=== PATIENT | male | born 2000 | race Caucasian/White ===

== ENCOUNTER 2023-11-28 21:50 | Emergency (ER) | payer OTHER, SELFPAY ==
[2023-11-28 21:57] VITALS: BP 154/98; PULSE 73; RESP 16; TEMP 36.9; O2SAT 100
--- NOTE | 2023-11-28 22:11 | ED_ITS ---
HPI - General Adult General Chief complaint: Ear Stated complaint: sick, ear pain kind of muffled Time Seen by Provider: 11/28/23 21:56 Source: patient Mode of arrival: Ambulatory History of Present Illness HPI narrative: 23-year-old male who is here for evaluation of progressively worsening right- sided Ear pain and muffled hearing on the right side. no drainage from the ear. Does have some sinus congestion a slight sore throat but that is only developed over the past couple days. Has not tried anything for symptoms prior to arrival. Related Data Previous Rx's Medication Instructions Recorded amoxicillin 875 mg-potassium 1 tab PO BID 7 days #14 tabs 11/28/23 clavulanate 125 mg tablet Allergies Allergy/AdvReac Type Severity Reaction Status Date / Time No Known Allergies Allergy Uncoded 11/28/23 21:56 Review of Systems Constitutional Constitutional: Reports system reviewed and no additional complaints, except as documented ENT Ears, Nose, Mouth, and Throat: Reports system reviewed and no additional complaints, except as documented Integumentary/Breasts Skin/Breast: Reports system reviewed and no additional complaints, except as do cumented Patient History Social History Smoking Status: Never smoker Smoking Status: Never smoker alcohol intake frequency: a few times a week Substance Use Type: marijuana Exam Initial Vital Signs Initial Vital Signs: Vital Signs Temperature 98.4 F 11/28/23 21:57 Pulse Rate 73 11/28/23 21:57 Respiratory Rate 16 11/28/23 21:57 Blood Pressure 154/98 H 11/28/23 21:57 Pulse Oximetry 100 11/28/23 21:57 Oxygen Delivery Method Room Air 11/28/23 21:57 HENMT Ears: TM normal on the left, EAC's normal, mastoids normal on the right and TM abnormal bulging on the right, wth effusion serous on the right, erythematous on the right, with fluid behind the TM on the right and with loss of landmarks on the right Mouth: oral mucosae normal, oropharynx normal and moist mucous membranes Throat: posterior oropharynx normal Skin General: no rashes or lesions noted Course Orders Ordered: Discontinued Medications Amoxicillin/Clavulanate Potassium (Amoxicillin/Clav 875/125 Mg) 1 tab PO NOW ONE Stop: 11/28/23 22:12 Last Admin: 11/28/23 22:14 Dose: 1 tab Documented By: AB Vital Signs Vital signs: Vital Signs - 8 hr 11/28/23 21:57 Temperature 98.4 F Pulse Rate 73 Respiratory Rate 16 Blood Pressure 154/98 H Pulse Oximetry 100 Oxygen Delivery Method Room Air Medical Decision Making MDM Narrative Medical decision making narrative: Physical exam is consistent with an acute otitis media on the right. His physical exam is not consistent with otitis externa. No mastoid tenderness. Oropharynx is unremarkable. He was had progressively worsening symptoms over the past couple days. Plan will be to start him on antibiotics. First dose given here in the emergency department a prescription was sent to the pharmacy of his choice. We also discussed the use of antihistamines which she can purchase [id number]. He was given return precautions. He expressed understanding and agreement. Discharge Plan Departure Patient Disposition: Home Clinical Impression: Otitis media Instructions: Middle Ear Infection Activity Restrictions/Additional Instructions: Take the antibiotic as directed. It was transmitted to [facility] per your request. I also recommend a antihistamine such as Claritin or Zyrtec. You can purchase this [id number]. Generic versions of the his medications are appropriate. Return to the emergency department for new symptoms. Prescriptions: New amoxicillin-pot clavulanate 875-125 mg tablet 1 tab PO BID 7 Days Qty: 14 0RF Stand Alone Forms: Patient Portal/API
[2023-11-28] MEDS: AMOXICILLIN/CLAV 875/125 MG 1 TAB PO (22:14)
== END 2023-11-28 22:17 | disposition home or self-care (01) ==
PROVIDERS: Emergency Provider Emergency Medicine
DX: H66.91 Otitis media, unspecified, right ear (principal); J02.9 Acute pharyngitis, unspecified
CPT/HCPCS: 99283